=== PATIENT | female | born 1970 | race Two or more races ===

== ENCOUNTER 2016-09-03 11:41 | Emergency (ER) | payer SELFPAY ==
[~2016-09-03 11:41] MED LIST: GLYBURIDE5 M1 PO; LISINOPRIL5 M1 PO; NORCO 10-325 T1 EACH PO; NORCO 5-325 TA1 EACH PO; NOVOLOG MI100 UNIT/1 SQ
[2016-09-03] MEDS ORDERED: LANTUS100 UNITS/ SC (12:10)
[2016-09-03] MEDS ORDERED: PHENTERMINE H37.5 M1 PO (12:11)
[2016-09-03] MEDS ORDERED: NOVOLOG MI100 UNITS/ SC (12:12)
[2016-09-03 12:55] LABS: BASO % 0.5 % (0-2); EOS % 6.4 % (0-7); EOSINOPHIL ABSOLUTE COUNT 0.4 tho/cmm (0.0-0.7); HCT-HEMATOCRIT 41.2 % (34.0-49.0); HGB-HEMOGLOBIN 14.2 gm/dl (12.0-15.5); IMMATURE GRANULOCYTES ABSOLUTE 0.07 tho/cmm (0-0.03); IMMATURE GRANULOCYTES PERCENT 1.1 % (0-0.3); LYMPH % 31.4 % (20-45); LYMPH ABSOLUTE COUNT 2.1 tho/cmm (0.8-4.5); MCH (MEAN CORPUSCULAR HGB) 30.3 pg (28.0-32.0); MCHC MEAN CORPUSCULAR HGB CONC 34.5 % (32.0-36.0); MCV (MEAN CELL VOLUME) 87.8 fl (82.0-96.0); MEAN PLATELET VOLUME 10.2 cmc (9.4-12.4); MONO % 6.4 % (0-12); MONOCYTE ABSOLUTE COUNT 0.4 tho/cmm (0.0-1.2); NEUTROPHIL ABSOLUTE COUNT 3.6 tho/cmm (1.6-8.0); NEUTROPHIL-AUTOMATED 3.6 tho/cmm (1.6-8.0); NEUTROPHILS % 54.2 % (40-80); PLATELET COUNT 215 tho/cmm (150-450); RED BLOOD COUNT 4.69 mil/cmm (4.00-5.20); WHITE BLOOD COUNT 6.6 tho/cmm (4.0-10.0)
[2016-09-03 13:10] LABS: ANION GAP 12 mmol/L (0-20); BLOOD UREA NITROGEN 25 mg/dl (6-24); CALCIUM 8.8 mg/dl (8.5-10.5); CARBON DIOXIDE-VENOUS 28 mmol/L (22-32); CHLORIDE 107 mmol/l (96-110); GLUCOSE 138 mg/dL (70-110); POTASSIUM 4.4 mmol/L (3.7-5.1); SODIUM 143 mmol/L (135-145); eGFR VALUE FOR BLACK >90 mL/Min
[2016-11-26] MEDS ORDERED: GLUCOPHAGE1000 M1 (20:11)
[2016-11-26] MEDS ORDERED: VIBRAMYCIN100 M1 PO (21:50)
== END 2016-09-03 14:11 ==
LOC: EDMED 11:41
PROVIDERS: Physician Assistant
DX: G43.909 Migraine, unspecified, not intractable, without status migrainosus (principal)
CPT/HCPCS: J1200; J1885; J2765; J7030